=== PATIENT | female | born 1970 | race African-American/Black ===

== ENCOUNTER 2021-08-15 15:34 | Emergency (ER) | payer OTHER, MEDICAID ==
[~2021-08-15] VITALS: Ht 170.2 cm; Wt 138.3 kg
[2021-08-15 15:43] VITALS: BP 159/95
== END 2021-08-15 16:41 | disposition home or self-care (01) ==
LOC: M.ERS 15:34
DX: J00 Acute nasopharyngitis [common cold] (principal); Z20.822 Contact with and (suspected) exposure to COVID-19; E11.9 Type 2 diabetes mellitus without complications